=== PATIENT | female | born 1950 | race Caucasian/White ===

== ENCOUNTER 2018-11-29 08:25 | Outpatient (CLI) | payer MEDICARE ==
--- NOTE | 2018-11-29 11:01 | RAD ---
CHEST 2 VIEWS: DATE: 11/29/2018. FINDINGS: The heart is normal in size and the lungs are clear. No infiltrate or effusion was seen. There is n o vascular congestion or edema. IMPRESSION: No acute findings. POS: HOME
[2018-11-29 18:09] LABS: Bacteria/HPF None Seen HPF (None Seen); Bilirubin Negative (Negative); Blood, Urine Negative (Negative); Clarity Clear (Clear); Glucose, Urine (Dipstick) Normal (Negative); Leukocyte 250 Leu/uL (Negative); Mucous/LPF 1+ LPF (<2+); Nitrite Negative (Negative); Protein, Urine (Dipstick) Negative (Neg-Trace); RBC/HPF 0-3 HPF (0-3); Squamous Epithelial 0-3 HPF (0-3); Urobilinogen Normal mg/dL (Less than 2)
== END 2018-11-29 08:26 | disposition home or self-care (01) ==
LOC: BURRAD 08:25
PROVIDERS: ATTEND Obstetrics & Gynecology Female Pelvic Medicine and Reconstructive Surgery
DX: N39.0 Urinary tract infection, site not specified (principal); N81.2 Incomplete uterovaginal prolapse
CPT/HCPCS: 71046; 81001; 87077; 87086; 87186